=== PATIENT | male | born 1975 | race Hispanic/Latino ===

== ENCOUNTER 2017-08-14 12:55 | Observation (INO) | payer BC ==
[~2017-08-14] VITALS: Ht 177.8 cm; Wt 141.7 kg
[2017-08-14] MEDS ORDERED: ASPIRIN 325 MG TAB EC PO STA (14:01)
[2017-08-14 14:09] LABS: BILIRUBIN,URINE NEGATIVE (NEGATIVE); KETONES,URINE NEGATIVE (NEGATIVE); LEUKOCYTE ESTERASE ,URINE NEGATIVE (NEGATIVE); NITRITE,URINE NEGATIVE (NEGATIVE); URINE UROBILINOGEN 0.2 mg/dL (0.2 - 1)
[2017-08-14 14:10] LABS: PROTEIN,URINE DIPSTICK 2+ (NEGATIVE)
[2017-08-14] MEDS ORDERED: NITROGLYCERIN 0.4 MG SUBL SL PRN ×2 (14:15→15:15)
[2017-08-14 14:22] LABS: BASOPHILS % 0.6 % (0.0-1.0); EOSINOPHILS # (AUTO) 0.1 (0.0-0.4); HEMATOCRIT 45.3 % (38.2-49.6); HEMOGLOBIN 15.3 g/dL (14.0-18.0); LYMPHOCYTES # (AUTO) 1.9 (1.0-3.2); LYMPHOCYTES % 28.9 % (18.0-39.1); MEAN CORPUSCULAR HGB CONC 33.8 g/dL (31-35); MONOCYTES # (AUTO) 0.4 (0.2-0.8); MONOCYTES % 6.7 % (4.4-11.3); NEUTROPHILS # (AUTO) 4.1 (2.1-6.9); NEUTROPHILS % 61.5 % (38.7-80.0); PLATELET COUNT 238 x10e3/uL (140-360); RED BLOOD COUNT 5.46 x10e6/uL (4.3-5.7); RED CELL DISTRIBUTION WIDTH 12.3 % (11.7-14.4)
[2017-08-14 14:28] LABS: INR 0.87; PROTHROMBIN TIME 12.3 seconds (11.9-14.5)
--- NOTE | 2017-08-14 14:28 | Diagnostic Imaging Report ---
PROCEDURE: A single AP view of the chest. COMPARISON: None. INDICATIONS: CHEST PAIN FINDINGS: Lines/tubes: None. Lungs: Limited by body habitus. Mild central vasculature congestion. There is no evidence of pneumonia or pulmonary edema. Pleura: There is no pleural effusion or pneumothorax. Heart and mediastinum: The heart and the mediastinum are unremarkable. Bones: No acute bony abnormality. IMPRESSION: Mild central vascular congestion. No focal consolidation. Dictated by: Kirill Ordonez M.D. on 08/14/2017 at 14:38 Electronically approved by: Kirill Ordonez M.D. on 08/14/2017 at 14:38
[2017-08-14 14:29] LABS: PARTIAL THROMBOPLASTIN TIME 27.2 seconds (23.8-35.5)
[2017-08-14 14:38] LABS: BACTERIA,URINE RARE /HPF; WBC,URINE (MAN) 0-5 /HPF (0-5)
[2017-08-14 14:38] LABS: ALANINE AMINOTRANSFERASE 47 IU/L (0-55); ALBUMIN 3.6 g/dL (3.5-5.0); ALBUMIN/GLOBULIN RATIO 0.9 (0.8-2.0); ALKALINE PHOSPHATASE 60 IU/L (40-150); BLOOD UREA NITROGEN 11 mg/dL (7-26); BUN/CREATININE RATIO 13 (6-25); CALCIUM 9.3 mg/dL (8.4-10.2); CARBON DIOXIDE 26 mmol/L (22-29); CHLORIDE 100 mmol/L (98-107); CREATINE KINASE 69 IU/L (30-200); CREATININE, SERUM 0.82 mg/dL (0.72-1.25); EST GLOMERULAR FILTRATION RATE > 60 ML/MIN (60-); GLUCOSE 379 mg/dL (74-118); SODIUM 137 mmol/L (136-145)
[2017-08-14 14:39] LABS: MUCUS,URINE FEW (RARE)
[2017-08-14 14:46] LABS: CHOL/HDL RATIO 5.6 (3.9-4.7)
[2017-08-14 15:00] LABS: CLARITY,URINE SL CLOUDY (CLEAR); COLOR,URINE YELLOW (YELLOW)
[2017-08-14] MEDS ORDERED: INSULIN REGULAR, HUMAN 100 UNIT/1 ML 3ML VIAL SQ ONE (15:00)
[2017-08-14] MEDS ORDERED: ASPIRIN 81 MG CHEW TAB PO ONE ×2 (15:15→16:00)
[2017-08-14] MEDS ORDERED: MORPHINE SULFATE 2 MG/ML SYR IV PRN (15:15)
[2017-08-14] MEDS ORDERED: SODIUM CHLORIDE FLUSH 10 ML SYR INJ PRN (15:15)
[2017-08-14] MEDS ORDERED: DEXTROSE 50% SYRINGE 50 ML IV PRN ×2 (15:15→18:30)
--- OUTSIDE RECORDS SUMMARY | 2017-08-14 15:20 | XMS REPORT ---
Author Author [facility] Address Unknown Phone Unavailable Care Team Providers Care Marketing Executive Name Role Phone LOLA CORTEZ Unavailable Unavailable Problems This patient has no known problems. Allergies, Adverse Reactions, Alerts This patient has no known allergies or adverse reactions. Medications This patient has no known medications. Results Test Description Test Time Test Comments Text Results Atomic Results Result Comments CHEST SINGLE (PORTABLE) [place] [address] Patient Name: NILSON MELTON MR #: [id number] : 1975 Age/Sex: 41/M Req #: [id number] Adm Physician: Ordered by: LOLA CORTEZ MD Report #: [id number] Location: ER Room/Bed: Procedure: [id number] DX/CHEST SINGLE (PORTABLE) Exam Date: 08/14/17 Exam Time: 1330 REPORT STATUS: Signed PROCEDURE: A single AP view of the chest. COMPARISON: None. INDICATIONS: CHEST PAIN FINDINGS: Lines/tubes: None. Lungs: Limited by body habitus. Mild central vasculature congestion. There is no evidence of pneumonia or pulmonary edema. Pleura: There is no pleural effusion or pneumothorax. Heart and mediastinum: The heart and the mediastinum are unremarkable. Bones: No acute bony abnormality. IMPRESSION: Mild central vascular congestion. No focal consolidation. Dictated by: Kirill Blood M.D. on 08/14/2017 at 14:38 Electronically approved by : Kirill Blood M.D. on 08/14/2017 at 14:38 Dictated By: KIRILL BLOOD MD [id number] Transcribed By: SOLOMON on 08/14/17 1438 COPY TO: LOLA CORTEZ MD
[2017-08-14] MEDS: FAMOTIDINE 20 MG TAB PO SCH (15:51)
[2017-08-14 16:50] VITALS: BP 149/107
[2017-08-14 16:58] VITALS: BP 159/104
[2017-08-14] MEDS: METOPROLOL SUCCINATE 25 MG TAB XL PO SCH (17:08)
[2017-08-14] MEDS: ENOXAPARIN SODIUM INJ 100 MG/ML SYR SC SCH (17:08)
[2017-08-14] MEDS: INSULIN REGULAR, HUMAN 100 UNIT/1 ML 3ML VIAL SQ SCH ×2 (17:08→21:00)
[2017-08-14] MEDS: NITROGLYCERIN 2% OINT 1 GM PKT TOP SCH (17:19)
[2017-08-14 20:00] VITALS: BP 126/77
[2017-08-14] MEDS ORDERED: ATORVASTATIN 20 MG TAB PO ONE (21:00)
[2017-08-14] MEDS ORDERED: INSULIN DETEMIR 100 UNIT/ML PEN SQ SCH (21:00)
[2017-08-14] MEDS: SIMVASTATIN 40 MG TAB PO SCH (21:01)
[2017-08-14] MEDS: INSULIN LISPRO 100 UNIT/1 ML 3ML VIAL SQ SCH (21:17)
[2017-08-14 22:39] LABS: CREATINE KINASE 47 IU/L (30-200)
[2017-08-14 23:47] VITALS: BP 157/88
[2017-08-15] VITALS (9 sets, daily range): BP systolic 128–168; BP diastolic 68–94
[2017-08-15] MEDS: NITROGLYCERIN 2% OINT 1 GM PKT TOP SCH ×4 (00:39→18:31)
[2017-08-15] MEDS: FAMOTIDINE 20 MG TAB PO SCH ×2 (03:12→15:07)
[2017-08-15] MEDS: ENOXAPARIN SODIUM INJ 100 MG/ML SYR SC SCH ×2 (04:51→16:05)
[2017-08-15 06:34] LABS: ALANINE AMINOTRANSFERASE 44 IU/L (0-55); ALBUMIN 3.1 g/dL (3.5-5.0); ALBUMIN/GLOBULIN RATIO 0.9 (0.8-2.0); ALKALINE PHOSPHATASE 51 IU/L (40-150); ANION GAP 14.2 mmol/L (8-16); BLOOD UREA NITROGEN 17 mg/dL (7-26); BUN/CREATININE RATIO 17 (6-25); CALCIUM 8.8 mg/dL (8.4-10.2); CARBON DIOXIDE 26 mmol/L (22-29); CHLORIDE 101 mmol/L (98-107); CHOL/HDL RATIO 7.7 (3.9-4.7); CHOLESTEROL 201 MD/DL (0-199); CREATINE KINASE 28 IU/L (30-200); CREATININE, SERUM 0.99 mg/dL (0.72-1.25); EST GLOMERULAR FILTRATION RATE > 60 ML/MIN (60-); GLUCOSE 346 mg/dL (74-118); HDL CHOLESTEROL 26 MG/DL (40-60); MAGNESIUM 1.5 MG/DL (1.3-2.1); PHOSPHORUS 3.8 MG/DL (2.3-4.7); POTASSIUM 4.2 mmol/L (3.5-5.1); SODIUM 137 mmol/L (136-145); TRIGLYCERIDES 654 MG/DL (0-149)
[2017-08-15 07:10] LABS: BASOPHILS # (AUTO) 0.1 (0.0-0.1); EOSINOPHILS # (AUTO) 0.2 (0.0-0.4); EOSINOPHILS % 2.2 % (0.0-6.0); HEMATOCRIT 41.2 % (38.2-49.6); LYMPHOCYTES # (AUTO) 2.2 (1.0-3.2); LYMPHOCYTES % 30.2 % (18.0-39.1); MEAN CORPUSCULAR HEMOGLOBIN 28.3 pg (28-32); MEAN CORPUSCULAR HGB CONC 33.7 g/dL (31-35); MEAN CORPUSCULAR VOLUME 83.9 fL (81-99); MONOCYTES # (AUTO) 0.5 (0.2-0.8); MONOCYTES % 7.5 % (4.4-11.3); NEUTROPHILS # (AUTO) 4.2 (2.1-6.9); NEUTROPHILS % 58.8 % (38.7-80.0); PLATELET COUNT 230 x10e3/uL (140-360); RED BLOOD COUNT 4.91 x10e6/uL (4.3-5.7); RED CELL DISTRIBUTION WIDTH 12.3 % (11.7-14.4)
[2017-08-15 07:22] LABS: HEMOGLOBIN 13.9 g/dL (14.0-18.0)
[2017-08-15] MEDS: INSULIN LISPRO 100 UNIT/1 ML 3ML VIAL SQ SCH ×7 (07:30→21:58)
[2017-08-15] MEDS: ASPIRIN 325 MG TAB EC PO SCH (08:23)
[2017-08-15] MEDS: LISINOPRIL 10 MG TAB PO SCH (08:24)
[2017-08-15] MEDS: METOPROLOL SUCCINATE 25 MG TAB XL PO SCH (08:24)
--- NOTE | 2017-08-15 09:46 | History and Physical ---
HISTORY OF PRESENT ILLNESS: Mr. 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 He was sent from Dr. Maldonado's office today where he presented with some substernal chest pressure. The patient reports he has felt this pressure off and on for the last 2 days, lasting perhaps up to as much as an hour at a time with no previous history and not dependent particularly on activity. 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 Before that he was a lpn care manager of a [employer] where he eats [place] fast food all the time. PAST MEDICAL HISTORY: Significant only for cholecystectomy about 10 years ago when he would have only been 31 years of age. He does not know of any medical illnesses, not aware that he had diabetes or hypertension. FAMILY HISTORY: His father is sitting at the bedside and has had multiple heart attacks and coronary bypass graft surgery. He reports that he has sisters that are healthy without known medical problems. PERSONAL/SOCIAL HISTORY: He smokes 1 or 2 cigarettes a day for many years. REVIEW OF SYSTEMS: GI: The patient denies any gastroesophageal reflux. MUSCULOSKELETAL: Patient reports he has some swelling in his ankles and some varicose veins. PHYSICAL EXAM: At this time, shows a pleasant obese man who is alert and oriented. VITAL SIGNS: Initial blood pressure 171/117, pulse is 80 and regular. HEENT: Relatively unremarkable. NECK: Is thick. THORAX: Chest wall nontender. CARDIOVASCULAR: Heart sounds S1 and S2 are equal with no murmurs. LUNGS: Clear. ABDOMEN: Markedly protuberant. EXTREMITIES: Have no cyanosis or clubbing. There is trace pretibial edema with varicosities visible. INITIAL LABORATORY: Show normal troponin. BNP is less than 10. Cholesterol 200, triglycerides 230, HDL 36, LDL 108, glucose 379. CBC is unremarkable. ASSESSMENT: 1. Chest discomfort, etiology not clear, now resolved as blood pressure is better after initial treatments. 2. Adult onset diabetes, not previously diagnosed with a hemoglobin A1C of 12.4. 3. Hypertension, not previously diagnosed. 4. Hyperlipidemia with family history of heart disease and smoking. PLAN: The patient has been initiated on SATYA inhibitors. Will add beta cori and sliding scale insulin. He has been given aspirin. Will check echocardiogram and Cardiolite and further management based on clinical course. Job#: [id number] GH cc:TAJ MALDONADO MD cc:CAROL LENNON MD
[2017-08-15 15:22] LABS: FREE T4 (FREE THYROXINE) 1.11 ng/dL (0.9-1.8); THYROID STIMULATING HORMONE 2.794 uIU/mL (0.350-4.940)
--- NOTE | 2017-08-15 15:31 | Consultation ---
DATE OF CONSULTATION: August 15, 2017 ENDOCRINE CONSULTATION This is a patient of Dr. Cheng. Thank you very much for referring this patient. HISTORY OF PRESENT ILLNESS: This is a 41-year-old gentleman who is referred to me for evaluation of uncontrolled diabetes mellitus. Patient is not a known diabetic; but, however, he does complain of polyuria, polydipsia, dryness of mouth, balanoposthitis. He came to the hospital with history of substernal chest discomfort and is being evaluated. Patient says that he does not have history of diabetes mellitus in the family. At the time of admission, his blood sugar was 370. Patient does smoke. PHYSICAL EXAMINATION: GENERAL: Today the patient is alert, awake, a little bit apprehensive. He is moderately to morbidly obese. VITAL SIGNS: His heart rate is around 78. Blood pressure is 117/80 mmHg. HEENT: Examination essentially unremarkable. Thyroid is palpable. Clinically he is near euthyroid. CHEST: Bilateral vesicular breathing. He has mild bronchospasm. CARDIAC: Both 1st and 2nd heart sounds. There is no 3rd or 4th heart sound. Ejection sound grade 2/6. EXTREMITIES: Patient has evidence of diabetic sensory neuropathy in both lower extremities. CLINICAL IMPRESSION: 1. Chest pain. Rule out coronary artery disease. 2. Diabetes mellitus type 2, uncontrolled with complications. 3. Hypertension. 4. Hyperlipidemia. 5. Obesity. The plan at this time is the patient has been started on the Levemir and the Humalog combination. Hemoglobin A1c is 12.4. Will also do extensive diabetic and dietary education. Thanks for referring this patient. I will be following this patient with you. Job#: [id number] EV MTDD
--- NOTE | 2017-08-15 18:07 | Cardiology Report ---
DATE OF STUDY: August 15, 2017 STRESS CARDIOLITE This is a 2-day study. Resting perfusion images were taken after injection of 11 millicuries of technetium-99 Myoview on August 14, 2017. On the morning of August 15, 2017, the patient exercised on Nick protocol for 6 minutes and 19 seconds reaching greater than 85% of predicted maximum with no ischemic changes and no chest pain. At maximum, he was given 32.4 millicuries of technetium-99 Myoview. Perfusion images were taken by rotational tomography. Comparison of resting and stress perfusion images show minor defects consistent with soft tissue attenuation due to his large size, but there is no significant defects to suggest any scar or ischemia. Additionally, gaited wall motion images were obtained and calculated ejection fraction normal at 51% without regional wall motion abnormality. FINAL IMPRESSION 1. Technically slightly difficult study due to body habitus. 2. Normal perfusion with no suggestion of scar or ischemia. 3. Normal left ventricular function with calculated ejection fraction of 51%. Job#: [id number] KELLY
[2017-08-15] MEDS ORDERED: INSULIN DETEMIR 100 UNIT/ML PEN SQ SCH (21:00)
[2017-08-15] MEDS: CLOTRIMAZOLE 1% CR 15 GM TOP SCH (21:58)
[2017-08-15] MEDS: SIMVASTATIN 40 MG TAB PO SCH (21:58)
[2017-08-16] VITALS (7 sets, daily range): BP systolic 119–171; BP diastolic 73–99
[2017-08-16] MEDS: NITROGLYCERIN 2% OINT 1 GM PKT TOP SCH ×4 (00:39→18:17)
[2017-08-16] MEDS: ENOXAPARIN SODIUM INJ 100 MG/ML SYR SC SCH ×2 (03:49→16:43)
[2017-08-16] MEDS: FAMOTIDINE 20 MG TAB PO SCH ×2 (03:49→16:43)
[2017-08-16] MEDS: ASPIRIN 325 MG TAB EC PO SCH (09:37)
[2017-08-16] MEDS: LISINOPRIL 10 MG TAB PO SCH (09:38)
[2017-08-16] MEDS: CLOTRIMAZOLE 1% CR 15 GM TOP SCH ×2 (09:39→16:45)
[2017-08-16] MEDS: METOPROLOL SUCCINATE 25 MG TAB XL PO SCH (09:39)
[2017-08-16] MEDS: INSULIN LISPRO 100 UNIT/1 ML 3ML VIAL SQ SCH ×7 (09:40→21:00)
[2017-08-16] MEDS ORDERED: METOPROLOL SUCCINATE 25 MG TAB XL PO ONE (17:00)
[2017-08-16] MEDS ORDERED: LISINOPRIL 10 MG TAB PO ONE (17:00)
[2017-08-16] MEDS ORDERED: INSULIN DETEMIR 100 UNIT/ML PEN SQ SCH (21:00)
[2017-08-16] MEDS: SIMVASTATIN 40 MG TAB PO SCH (21:02)
[2017-08-16] MEDS ORDERED: ACETAMINOPHEN 325 MG TAB PO PRN (21:15)
[2017-08-17] VITALS: BP 117/71
[2017-08-17] MEDS: NITROGLYCERIN 2% OINT 1 GM PKT TOP SCH ×3 (00:09→12:00)
[2017-08-17 04:00] VITALS: BP 120/72
[2017-08-17] MEDS: FAMOTIDINE 20 MG TAB PO SCH (04:00)
[2017-08-17] MEDS: ENOXAPARIN SODIUM INJ 100 MG/ML SYR SC SCH (04:00)
[2017-08-17] MEDS: INSULIN LISPRO 100 UNIT/1 ML 3ML VIAL SQ SCH ×6 (07:55→16:50)
[2017-08-17] MEDS: ASPIRIN 325 MG TAB EC PO SCH (08:04)
[2017-08-17] MEDS: CLOTRIMAZOLE 1% CR 15 GM TOP SCH (08:05)
[2017-08-17 08:06] VITALS: BP 152/94
[2017-08-17] MEDS ORDERED: METOPROLOL SUCCINATE 50 MG TAB XL PO SCH (09:00)
[2017-08-17] MEDS ORDERED: METOPROLOL SUCCINATE 25 MG TAB XL PO SCH (09:00)
[2017-08-17] MEDS ORDERED: LISINOPRIL 10 MG TAB PO SCH (09:00)
[2017-08-17 12:02] VITALS: BP 153/103
[2017-08-17] MEDS ORDERED: SIMVASTATIN40 MG PO (12:53)
[2017-08-17] MEDS ORDERED: Insulin Detemir SQ (12:53)
[2017-08-17] MEDS ORDERED: TOPROL XL50 MG PO (12:53)
[2017-08-17] MEDS ORDERED: LISINOPRIL10 MG PO (12:53)
[2017-08-17] MEDS ORDERED: Insulin Lispro SQ (12:53)
--- NOTE | 2017-08-17 14:42 | Discharge Summary ---
Mr. 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 Mclean's office with chest discomfort and very high blood pressure. HOSPITAL COURSE: Patient was not previously known to have diabetes or hypertension and was found to have blood pressures around 170/110 and blood sugars initially 379. He was treated with SATYA inhibitor, beta cori, nitroglycerin paste and started on statin drug. Dr. Pearce was consulted for diabetic management. He was given insulin regimen. On the morning of the , the patient had stress Cardiolite performed that did not show any evidence of any ischemia. His blood pressure was somewhat improved. His medicines, however, were increased, and Dr. Pearce increased his insulin regimen as well. Today, the patient is feeling well. No recurrent chest discomfort. Cardiac studies are unremarkable, and he is discharged to home to take simvastatin 40 mg daily, metoprolol succinate 100 mg daily, lisinopril 20 mg daily as well as an insulin regimen to be detailed by Dr. Pearce, currently on Levemir 35 units at bedtime and 20 units of Humalog t.i.d. with meals. He will follow up with myself in 10 days, Dr. Pearce in [address] Mclean on a regular basis. DISCHARGE DIAGNOSES 1. New and uncontrolled hypertension. 2. New and uncontrolled diabetes. 3. Chest discomfort, resolved. 4. Hyperlipidemia. CJ PETIT MD Job#: [id number] cc:MD CAROL MCKNIGHT MD
[2017-08-17 15:44] VITALS: BP 134/78
== END 2017-08-17 17:05 | disposition home or self-care (01) ==
LOC: ER 12:55 → INTOOBSV 15:18 → ERHOLD 15:18 → MED/SURG2 17:41
PROVIDERS: ADMIT Internal Medicine Cardiovascular Disease; ATTEND Internal Medicine Cardiovascular Disease
DX: I10 Essential (primary) hypertension (principal); E11.65 Type 2 diabetes mellitus with hyperglycemia; E11.42 Type 2 diabetes mellitus with diabetic polyneuropathy; Z79.4 Long term (current) use of insulin; R07.89 Other chest pain; E78.5 Hyperlipidemia, unspecified; E66.01 Morbid (severe) obesity due to excess calories; Z68.41 Body mass index [BMI] 40.0-44.9, adult; Z71.3 Dietary counseling and surveillance; F17.210 Nicotine dependence, cigarettes, uncomplicated; Z82.49 Family history of ischemic heart disease and other diseases of the circulatory system
CPT/HCPCS: 36415 ×4; 71045; 78452; 80053 ×2; 80061 ×2; 81001; 82550 ×2; 82553 ×2; 82948 ×4; 83036; 83735; 83880; 84100; 84439; 84443; 84484 ×2; 85025 ×2; 85379; 85610; 85730; 87086; 93005 ×2; 93017; 93306; 96372 ×2; 99284; A9502; G0378 ×4; J1650 ×4

== ENCOUNTER 2019-10-31 19:54 | Emergency (ER) | payer BC ==
[~2019-10-31] VITALS: Ht 177.8 cm; Wt 136.1 kg
[~2019-10-31 19:54] MED LIST: Insulin Detemir SQ; Insulin Lispro SQ; LISINOPRIL10 MG PO; SIMVASTATIN40 MG PO; TOPROL XL50 MG PO
[2019-10-31 20:23] LABS: BILIRUBIN,URINE NEGATIVE (NEGATIVE); CLARITY,URINE HAZY (CLEAR); COLOR,URINE YELLOW (YELLOW); KETONES,URINE NEGATIVE (NEGATIVE); LEUKOCYTE ESTERASE ,URINE NEGATIVE (NEGATIVE); NITRITE,URINE NEGATIVE (NEGATIVE); PROTEIN,URINE DIPSTICK 1+ (NEGATIVE); URINE UROBILINOGEN 0.2 mg/dL (0.2 - 1)
[2019-10-31 20:30] LABS: BACTERIA,URINE FEW /HPF; EPITHELIAL CELLS,URINE FEW /LPF; RBC,URINE 0-5 /HPF (0-5); WBC,URINE (MAN) 0-5 /HPF (0-5)
--- NOTE | 2019-10-31 21:06 | Diagnostic Imaging Report ---
Exam: KUB - 9 views Clinical History: Left-sided abdominal pain. Comparison: None. Findings: Somewhat limited examination secondary to body habitus. Nonobstructive bowel gas pattern. Moderate amount of stool in the colon. No evidence of free intraperitoneal air. No evidence of abnormal calcification. No acute bony abnormality. Surgical clips project over the right lower quadrant. Status post cholecystectomy. Impression: No acute radiographic abnormality. Moderate amount of stool in the colon. Signed by: Dr. Stepan Hines MD on 10/31/2019 9:03 PM
[2019-10-31 21:20] VITALS: BP 150/96
== END 2019-10-31 21:33 | disposition home or self-care (01) ==
LOC: ER 19:54
DX: R05 Cough (principal); J20.9 Acute bronchitis, unspecified; Z87.19 Personal history of other diseases of the digestive system
CPT/HCPCS: 74019; 81001; 99283

== ENCOUNTER 2021-08-20 11:09 | Inpatient (IN) | payer BC ==
[~2021-08-20] VITALS: Ht 177.8 cm; Wt 140.6 kg
[2021-08-20] MEDS ORDERED: ONDANSETRON HCL INJ 2MG/ML 2ML 2 MG/ML VIAL IV STA (11:34)
[2021-08-20] MEDS ORDERED: SODIUM CHLORIDE 0.9% 1000ML 1,000 ML IV SCH (11:45)
[2021-08-20 11:54] LABS: BASOPHILS # (AUTO) 0.1 (0.0-0.1); BASOPHILS % 0.8 % (0.0-1.0); EOSINOPHILS # (AUTO) 0.1 (0.0-0.4); EOSINOPHILS % 1.4 % (0.0-6.0); HEMATOCRIT 38.7 % (38.2-49.6); LYMPHOCYTES % 13.4 % (18.0-39.1); MEAN CORPUSCULAR HEMOGLOBIN 27.4 pg (28-32); MEAN CORPUSCULAR VOLUME 88.4 fL (81-99); MONOCYTES # (AUTO) 0.4 (0.2-0.8); MONOCYTES % 5.4 % (4.4-11.3); NEUTROPHILS % 78.6 % (38.7-80.0); PLATELET COUNT 261 x10e3/uL (140-360); RED BLOOD COUNT 4.38 x10e6/uL (4.3-5.7); RED CELL DISTRIBUTION WIDTH 12.8 % (11.7-14.4)
[2021-08-20 12:14] LABS: ALBUMIN 3.6 g/dL (3.5-5.0); ALBUMIN/GLOBULIN RATIO 0.9 (0.8-2.0); ANION GAP 13.6 mmol/L (8-16); CALCIUM 9.4 mg/dL (8.4-10.2); CREATININE, SERUM 1.76 mg/dL (0.72-1.25); POTASSIUM 5.6 mmol/L (3.5-5.1)
[2021-08-20 12:21] LABS: CLARITY,URINE CLEAR (CLEAR); COLOR,URINE YELLOW (YELLOW)
[2021-08-20 12:22] LABS: CREATINE KINASE MB 2.9 ng/mL (0-5.0); KETONES,URINE NEGATIVE (NEGATIVE); LEUKOCYTE ESTERASE ,URINE NEGATIVE (NEGATIVE); NITRITE,URINE NEGATIVE (NEGATIVE); PROTEIN,URINE DIPSTICK 2+ (NEGATIVE); URINE UROBILINOGEN 0.2 mg/dL (0.2 - 1)
[2021-08-20 12:28] LABS: BACTERIA,URINE RARE /HPF; EPITHELIAL CELLS,URINE FEW /LPF; RBC,URINE 21-50 /HPF (0-5); WBC,URINE (MAN) 21-50 /HPF (0-5)
[2021-08-20 12:30] LABS: MAGNESIUM 1.7 MG/DL (1.3-2.1)
[2021-08-20] MEDS ORDERED: Morphine 4mg Syringe 4 MG/ML INJ IV ONE ×2 (12:30→13:00)
[2021-08-20] MEDS ORDERED: SODIUM CHLORIDE 0.9% 500ML 500 ML IV ONE (13:00)
[2021-08-20] MEDS ORDERED: SODIUM CHLORIDE 0.9% 500ML 500 ML ONE (13:03)
[2021-08-20] MEDS: CEFTRIAXONE 1 GM in SODIUM CHLORIDE 0.9% 50ML 50 ML IV SCH ×2 (13:54→19:48)
[2021-08-20] MEDS ORDERED: SODIUM CHLORIDE 0.9% 50ML 50 ML ONE (14:25)
[2021-08-20] MEDS ORDERED: IOPAMIDOL 370 MG/ML 200 ML INFUS..BTL INJ ONE (14:26)
[2021-08-20] MEDS: SODIUM CHLORIDE 0.9% 1000ML 1,000 ML IV SCH ×2 (14:27→15:59)
[2021-08-20] MEDS ORDERED: HYDROMORPHONE 1MG/1ML INJ IV PRN (14:30)
[2021-08-20] MEDS ORDERED: HYDROMORPHONE 1MG/1ML INJ IV ONE (14:30)
[2021-08-20 14:56] LABS: CHOL/HDL RATIO 3.6 (3.9-4.7)
[2021-08-20] MEDS ORDERED: HYDROMORPHONE 2MG/ML 2 MG/ML ML IV PRN (15:45)
[2021-08-20] MEDS ORDERED: ACETAMINOPHEN 1000 MG/100 ML IV PRN (15:45)
[2021-08-20] MEDS: ONDANSETRON HCL INJ 2MG/ML 2ML 2 MG/ML VIAL IV PRN ×2 (15:59→19:49)
[2021-08-20 16:36] VITALS: BP 180/99
[2021-08-20 16:40] VITALS: BP 150/80
[2021-08-20] MEDS: HYDRALAZINE HCL 20 MG/ML VIAL IV PRN (16:50)
[2021-08-20] MEDS ORDERED: SOD POLYSTYRENE SULFONATE SUSP 15 GM/60 ML BTL PR ONE (17:00)
[2021-08-20 17:14] VITALS: BP 180/99
[2021-08-20 18:00] VITALS: BP 147/88
[2021-08-20 18:28] LABS: CREATINE KINASE MB 2.9 ng/mL (0-5.0)
[2021-08-20] MEDS ORDERED: DEXTROSE 50% SYRINGE 50 ML IV PRN (19:15)
[2021-08-20 20:00] VITALS: BP 174/96
[2021-08-20] MEDS: INSULIN LISPRO 100 UNIT/1 ML 3ML VIAL SQ SCH (20:09)
[2021-08-20 21:00] VITALS: BP 174/96
[2021-08-21] VITALS (8 sets, daily range): BP systolic 109–148; BP diastolic 63–91
[2021-08-21] MEDS: SODIUM CHLORIDE 0.9% 1000ML 1,000 ML IV SCH ×3 (02:31→17:57)
[2021-08-21 05:16] LABS: BASOPHILS % 0.5 % (0.0-1.0); EOSINOPHILS % 0.1 % (0.0-6.0); HEMATOCRIT 34.1 % (38.2-49.6); HEMOGLOBIN 10.8 g/dL (14.0-18.0); LYMPHOCYTES # (AUTO) 1.3 (1.0-3.2); LYMPHOCYTES % 15.5 % (18.0-39.1); MEAN CORPUSCULAR HEMOGLOBIN 27.3 pg (28-32); MEAN CORPUSCULAR HGB CONC 31.7 g/dL (31-35); MEAN CORPUSCULAR VOLUME 86.3 fL (81-99); MONOCYTES # (AUTO) 0.6 (0.2-0.8); MONOCYTES % 7.5 % (4.4-11.3); NEUTROPHILS # (AUTO) 6.5 (2.1-6.9); PLATELET COUNT 258 x10e3/uL (140-360); RED BLOOD COUNT 3.95 x10e6/uL (4.3-5.7)
[2021-08-21 05:50] LABS: ALBUMIN 3.1 g/dL (3.5-5.0); ALBUMIN/GLOBULIN RATIO 0.9 (0.8-2.0); ANION GAP 12.6 mmol/L (8-16); CALCIUM 8.1 mg/dL (8.4-10.2); CREATININE, SERUM 1.78 mg/dL (0.72-1.25); POTASSIUM 4.6 mmol/L (3.5-5.1)
[2021-08-21 05:51] LABS: CREATINE KINASE 104 IU/L (30-200)
[2021-08-21] MEDS: INSULIN LISPRO 100 UNIT/1 ML 3ML VIAL SQ SCH ×4 (08:55→21:45)
[2021-08-21] MEDS: CEFTRIAXONE 1 GM in SODIUM CHLORIDE 0.9% 50ML 50 ML IV SCH ×2 (08:58→21:45)
[2021-08-22] VITALS (9 sets, daily range): BP systolic 120–169; BP diastolic 78–95
[2021-08-22] MEDS: SODIUM CHLORIDE 0.9% 1000ML 1,000 ML IV SCH ×4 (00:59→21:01)
[2021-08-22 06:15] LABS: BASOPHILS # (AUTO) 0.1 (0.0-0.1); BASOPHILS % 1.1 % (0.0-1.0); EOSINOPHILS # (AUTO) 0.2 (0.0-0.4); EOSINOPHILS % 2.5 % (0.0-6.0); HEMATOCRIT 32.8 % (38.2-49.6); HEMOGLOBIN 10.3 g/dL (14.0-18.0); LYMPHOCYTES # (AUTO) 1.5 (1.0-3.2); LYMPHOCYTES % 23.2 % (18.0-39.1); MEAN CORPUSCULAR HEMOGLOBIN 27.5 pg (28-32); MEAN CORPUSCULAR HGB CONC 31.4 g/dL (31-35); MEAN CORPUSCULAR VOLUME 87.5 fL (81-99); MONOCYTES # (AUTO) 0.5 (0.2-0.8); MONOCYTES % 8.2 % (4.4-11.3); NEUTROPHILS # (AUTO) 4.2 (2.1-6.9); NEUTROPHILS % 64.7 % (38.7-80.0); PLATELET COUNT 204 x10e3/uL (140-360); RED BLOOD COUNT 3.75 x10e6/uL (4.3-5.7); RED CELL DISTRIBUTION WIDTH 13.1 % (11.7-14.4)
[2021-08-22 06:46] LABS: ANION GAP 11.5 mmol/L (8-16); CREATININE, SERUM 1.44 mg/dL (0.72-1.25); POTASSIUM 4.5 mmol/L (3.5-5.1)
[2021-08-22 06:48] LABS: CHOL/HDL RATIO 4.3 (3.9-4.7)
[2021-08-22 07:15] LABS: FREE T4 (FREE THYROXINE) 0.8 ng/dL (0.8-1.8)
[2021-08-22] MEDS: CEFTRIAXONE 1 GM in SODIUM CHLORIDE 0.9% 50ML 50 ML IV SCH ×2 (08:19→21:01)
[2021-08-22] MEDS: METOPROLOL SUCCINATE 50 MG TAB XL PO SCH (08:19)
[2021-08-22] MEDS: INSULIN LISPRO 100 UNIT/1 ML 3ML VIAL SQ SCH ×4 (08:20→21:04)
[2021-08-22] MEDS ORDERED: LOSARTAN POTAS100 MG PO (10:12)
[2021-08-22] MEDS ORDERED: ASPIRIN81 MG PO (10:29)
[2021-08-22] MEDS ORDERED: METFORMIN HCL500 MG PO (10:29)
[2021-08-22] MEDS ORDERED: LEVOTHYROXINE75 MCG PO (10:29)
[2021-08-22] MEDS ORDERED: TRICOR145 MG PO (10:29)
[2021-08-22] MEDS ORDERED: ALTOPREV40 MG PO (10:29)
[2021-08-22] MEDS ORDERED: SIMVASTATIN 40 MG TAB PO SCH (21:00)
[2021-08-22] MEDS ORDERED: INSULIN GLARGINE 100 UNITS/ML VIAL SQ SCH (21:00)
[2021-08-22] MEDS: HYDRALAZINE HCL 20 MG/ML VIAL IV PRN (21:02)
[2021-08-23 00:55] VITALS: BP 141/68
[2021-08-23] MEDS: SODIUM CHLORIDE 0.9% 1000ML 1,000 ML IV SCH ×2 (03:35→09:12)
[2021-08-23 05:55] VITALS: BP 160/93
[2021-08-23 06:28] LABS: ANION GAP 10.2 mmol/L (8-16); CALCIUM 7.9 mg/dL (8.4-10.2); CREATININE, SERUM 1.36 mg/dL (0.72-1.25); POTASSIUM 4.2 mmol/L (3.5-5.1)
[2021-08-23] MEDS: INSULIN LISPRO 100 UNIT/1 ML 3ML VIAL SQ SCH (07:30)
[2021-08-23] MEDS: METOPROLOL SUCCINATE 50 MG TAB XL PO SCH (09:00)
[2021-08-23] MEDS: CEFTRIAXONE 1 GM in SODIUM CHLORIDE 0.9% 50ML 50 ML IV SCH (09:00)
== END 2021-08-23 11:03 | disposition home or self-care (01) | DRG 690 ==
LOC: ER 11:37 → ERHOLD 14:32 → MED/SURG2 15:31
PROVIDERS: ADMIT Internal Medicine; ATTEND Internal Medicine
DX: N13.6 Pyonephrosis (principal); N20.2 Calculus of kidney with calculus of ureter; N13.8 Other obstructive and reflux uropathy; K76.0 Fatty (change of) liver, not elsewhere classified; E88.09 Other disorders of plasma-protein metabolism, not elsewhere classified; E11.65 Type 2 diabetes mellitus with hyperglycemia; E11.22 Type 2 diabetes mellitus with diabetic chronic kidney disease; I12.9 Hypertensive chronic kidney disease with stage 1 through stage 4 chronic kidney disease, or unspecified chronic kidney disease; N18.30 Chronic kidney disease, stage 3 unspecified; Z79.899 Other long term (current) drug therapy; E87.5 Hyperkalemia; M47.9 Spondylosis, unspecified; N50.0 Atrophy of testis; N17.9 Acute kidney failure, unspecified; Z20.822 Contact with and (suspected) exposure to COVID-19
CPT/HCPCS: 36415; 74177; 80048; 80053; 80061; 81001; 82150; 82550; 82553; 82948; 83036; 83690; 83735; 83970; 84436; 84439; 84443; 84484; 84550; 85025; 87086; 88300; 93005; 99284; J0360; J0696; J1170; J1815; J2270; J2405; J7030; J7040; Q9967; U0002

== ENCOUNTER → 2021-10-04 | Day surgery (SDC) | payer BC ==
[2021-10-03 11:44] LABS: BASOPHILS # (AUTO) 0.1 (0.0-0.1); BASOPHILS % 1.1 % (0.0-1.0); EOSINOPHILS # (AUTO) 0.1 (0.0-0.4); EOSINOPHILS % 1.6 % (0.0-6.0); HEMATOCRIT 38.3 % (38.2-49.6); HEMOGLOBIN 12.1 g/dL (14.0-18.0); LYMPHOCYTES # (AUTO) 1.5 (1.0-3.2); LYMPHOCYTES % 19.4 % (18.0-39.1); MEAN CORPUSCULAR HEMOGLOBIN 27.3 pg (28-32); MEAN CORPUSCULAR HGB CONC 31.6 g/dL (31-35); MEAN CORPUSCULAR VOLUME 86.5 fL (81-99); MONOCYTES # (AUTO) 0.5 (0.2-0.8); MONOCYTES % 6.5 % (4.4-11.3); NEUTROPHILS # (AUTO) 5.7 (2.1-6.9); NEUTROPHILS % 71.1 % (38.7-80.0); PLATELET COUNT 297 x10e3/uL (140-360); RED BLOOD COUNT 4.43 x10e6/uL (4.3-5.7); RED CELL DISTRIBUTION WIDTH 12.4 % (11.7-14.4)
[2021-10-03 12:00] LABS: INR 0.98; PROTHROMBIN TIME 13.9 seconds (11.9-14.5)
[2021-10-03 12:01] LABS: PARTIAL THROMBOPLASTIN TIME 26.9 seconds (23.8-35.5)
[2021-10-03 12:08] LABS: ANION GAP 15.3 mmol/L (8-16); CALCIUM 9.8 mg/dL (8.4-10.2); CREATININE, SERUM 2.56 mg/dL (0.72-1.25); POTASSIUM 5.3 mmol/L (3.5-5.1)
[~2021-10-04] MED LIST changes: +ALTOPREV40 MG PO; +AMLODIPINE BESYL5 MG PO; +ASPIRIN81 MG PO; +B&O 60MG R/S 60 MG SUPP PR ONE; +CEFTRIAXONE 1 GM VIAL ONE; +DEXAMETHASONE SOD PHOS INJ 4 MG/ML SDV ONE; +FENTANYL CITRATE/PF 100MCG/2 ML INJ ONE; +GENTAMICIN 80MG/NS 100 ML 100 ML IV ONE; +IOPAMIDOL 300MG/ML 50ML INFUS..BTL IV ONE; +LEVOTHYROXINE75 MCG PO; +LIDOCAINE HCL 2% LOCAL INJ 5 ML SDV VIAL INJ ONE; +LISPRO INSULIN SC; +LOSARTAN POTAS100 MG PO; +METFORMIN HCL500 MG PO; +MIDAZOLAM HCL 2 MG/2 ML VIAL ONE; +ONDANSETRON HCL INJ 2MG/ML 2ML 2 MG/ML VIAL ONE; +POVIDONE IODINE 0.05% 0.05 % ML PO ONE; +PROPOFOL IV EMULSION 10 MG/ML 20 ML VIAL ONE; +ROCURONIUM BROMIDE 10 MG/ML 5ML VIAL IV ONE; +SEVOFLURANE INHAL SOLN 250 ML PEN BTL ONE; +TRESIBA100 UNIT/1 SQ; +TRICOR145 MG PO
[2021-10-04 07:16] LABS: ANION GAP 12.3 mmol/L (8-16); CREATININE, SERUM 3.05 mg/dL (0.72-1.25); POTASSIUM 4.3 mmol/L (3.5-5.1)
[2021-10-04 09:48] VITALS: BP 131/87
== END | disposition home or self-care (01) ==
LOC: OR 06:29
PROVIDERS: ATTEND Urology
DX: N20.0 Calculus of kidney (principal); N32.89 Other specified disorders of bladder; N40.1 Benign prostatic hyperplasia with lower urinary tract symptoms; N13.8 Other obstructive and reflux uropathy; E11.22 Type 2 diabetes mellitus with diabetic chronic kidney disease; I12.9 Hypertensive chronic kidney disease with stage 1 through stage 4 chronic kidney disease, or unspecified chronic kidney disease; N18.9 Chronic kidney disease, unspecified; E03.9 Hypothyroidism, unspecified; Z01.810 Encounter for preprocedural cardiovascular examination; Z01.812 Encounter for preprocedural laboratory examination; Z01.818 Encounter for other preprocedural examination; Z20.822 Contact with and (suspected) exposure to COVID-19; Z79.82 Long term (current) use of aspirin; Z79.4 Long term (current) use of insulin; Z79.899 Other long term (current) drug therapy
CPT/HCPCS: 36415 ×2; 52356; 74018; 74420; 80048 ×2; 82948; 83970; 84550; 85025; 85610; 85730; 88300; 93005; C1758; C1769; C2617; J0696; J1100; J1580; J2001; J2250; J2405; J2704; J3010; Q9967; U0002

== ENCOUNTER → 2021-11-15 | Day surgery (SDC) | payer BC, OTHER ==
[2021-11-14 08:46] LABS: BASOPHILS # (AUTO) 0.1 (0.0-0.1); BASOPHILS % 1.2 % (0.0-1.0); EOSINOPHILS # (AUTO) 0.3 (0.0-0.4); EOSINOPHILS % 3.9 % (0.0-6.0); HEMATOCRIT 36.8 % (38.2-49.6); HEMOGLOBIN 11.6 g/dL (14.0-18.0); LYMPHOCYTES # (AUTO) 1.5 (1.0-3.2); LYMPHOCYTES % 22.3 % (18.0-39.1); MEAN CORPUSCULAR HEMOGLOBIN 27.1 pg (28-32); MEAN CORPUSCULAR HGB CONC 31.5 g/dL (31-35); MONOCYTES # (AUTO) 0.5 (0.2-0.8); NEUTROPHILS # (AUTO) 4.4 (2.1-6.9); NEUTROPHILS % 65.3 % (38.7-80.0); PLATELET COUNT 252 x10e3/uL (140-360); RED BLOOD COUNT 4.28 x10e6/uL (4.3-5.7)
[2021-11-14 09:04] LABS: ANION GAP 11.3 mmol/L (8-16); CREATININE, SERUM 2.2 mg/dL (0.72-1.25); POTASSIUM 5.3 mmol/L (3.5-5.1)
[~2021-11-15] MED LIST changes: -DEXAMETHASONE SOD PHOS INJ 4 MG/ML SDV ONE; -GENTAMICIN 80MG/NS 100 ML 100 ML IV ONE; +GENTAMICIN 80MG/NS 100 ML 200 ML IV ONE; -ROCURONIUM BROMIDE 10 MG/ML 5ML VIAL IV ONE
[2021-11-15 10:30] VITALS: BP 141/88
== END | disposition home or self-care (01) ==
LOC: OR 10:45
PROVIDERS: ATTEND Urology
DX: N20.0 Calculus of kidney (principal); Z46.6 Encounter for fitting and adjustment of urinary device; N32.89 Other specified disorders of bladder; N28.89 Other specified disorders of kidney and ureter; I10 Essential (primary) hypertension; E78.5 Hyperlipidemia, unspecified; E03.9 Hypothyroidism, unspecified; E11.9 Type 2 diabetes mellitus without complications; M54.9 Dorsalgia, unspecified; V89.2XXS Person injured in unspecified motor-vehicle accident, traffic, sequela; Z01.818 Encounter for other preprocedural examination; Z01.812 Encounter for preprocedural laboratory examination; Z20.822 Contact with and (suspected) exposure to COVID-19; Z79.4 Long term (current) use of insulin; Z79.82 Long term (current) use of aspirin; Z79.899 Other long term (current) drug therapy; Z87.891 Personal history of nicotine dependence
CPT/HCPCS: 36415 ×2; 52352; 74018; 74420; 80048; 82948; 84132; 84550; 85025; 88300; C1766; C1769; J0696; J1580; J2001; J2250; J2405; J2704; J3010; Q9967; U0002